=== PATIENT | female | born 1990 | race Caucasian/White ===

== ENCOUNTER 2017-04-11 17:42 | Emergency (ER) | payer OTHER ==
[2017-04-11] MEDS ORDERED: PREDNISONE 20 MG TAB PO ONE (18:11)
[2017-04-11] MEDS ORDERED: FAMOTIDINE 20MG TABLET PO ONE (18:11)
[2017-04-11] MEDS ORDERED: DIPHENHYDRAMINE HCL 25 MG CAPSULE PO ONE (18:11)
--- NOTE | 2017-04-11 18:16 | Emergency Department Record ---
History of Present Illness - General Chief complaint: Bite Insect/other Stated complaint: BEE STINGS, PATRICIA Time Seen by Provider: 04/11/17 18:11 Source: Patient Mode of Arrival: Ambulatory Limitations: No limitations - History of Present Illness Initial comments: 26 yo female presents to ED with a CC of scratchy throat and "difficulty taking a deep breath" following several bee stings that occurred 5 hours ago. Patient denies wheezing, throat swelling, or hives. Patient denies health problems at her baseline. MD complaint: Insect bite/sting Onset/Timin -: Hour(s) Location: Generalized Severity: Mild Consistency: Constant Improves with: None Worsens with: None Context: None Associated symptoms: Shortness of breath Treatments Prior to Arrival: None - Related Data Home Medications Medication Instructions Recorded Confirmed Last Taken Norgestimate-Ethinyl Estradiol 1 tab PO DAILY 04/11/17 04/11/17 04/11/17 [Ortho Tri-Cyclen 28 Tablet] Previous Rx's Medication Instructions Recorded Diphenhydramine HCl [Benadryl] 50 mg PO Q6H #20 cap 04/11/17 Famotidine [Pepcid] 40 mg PO DAILY #30 tablet 04/11/17 Prednisone [Prednisone 20Mg] 20 mg PO BID #8 tab 04/11/17 Allergies Allergy/AdvReac Type Severity Reaction Status Date / Time No Known Drug Allergies Allergy Verified 04/11/17 18:10 Review of Systems Constitutional: Denies: Chills, Fever, Malaise, Night sweats Eyes: Denies: Eye discharge, Eye pain ENT: Reports: Other (scratchy throat). Denies: Congestion, Ear pain, Epistaxis Respiratory: Denies: Cough, Dyspnea Cardiovascular: Denies: Chest pain, Dyspnea on exertion Endocrine: Denies: Fatigue, Heat or cold intolerance Gastrointestinal: Denies: Abdominal pain, Nausea, Vomiting Genitourinary: Denies: Incontinence, Retention Musculoskeletal: Denies: Arthralgia, Back pain, Gout, Joint swelling Skin: Denies: Bruising, Change in color Neurological: Denies: Abnormal gait, Confusion, Headache, Tingling Psychiatric: Denies: Anxiety Hematological/Lymphatic: Denies: Anemia, Blood Clots Past Medical History - SOCIAL HISTORY Smoking Status: Never smoker - RESPIRATORY Hx Respiratory Disorders: Yes Hx Asthma: Yes - CARDIOVASCULAR Hx Cardio Disorders: No - NEURO Hx Neuro Disorders: No - GI Hx GI Disorders: No - Hx Genitourinary Disorders: No - ENDOCRINE Hx Endocrine Disorders: No - MUSCULOSKELETAL Hx Musculoskeletal Disorders: No - PSYCH Hx Psych Problems: No - HEMATOLOGY/ONCOLOGY Hx Hematology/Oncology Disorders: No Family Medical History Hx Cancer: Grandparents Hx Diabetes: Grandparents Hx HTN: Grandparents Physical Exam - General General Appearance: Alert, Oriented x3, Cooperative, No acute distress Limitations: No limitations - Head Head exam: Atraumatic, Normocephalic, Normal inspection Head exam detail: negative: Abrasion, Contusion, Rowe's sign, General tenderness, Hematoma, Laceration - Eye Eye exam: Normal appearance. negative: Conjunctival injection, Periorbital swelling, Periorbital tenderness, Scleral icterus - ENT Ear exam: negative: Auricular hematoma, Auricular trauma Nasal Exam: negative: Active bleeding, Discharge, Dried blood, Foreign body Mouth exam: Other (normal uvula). negative: Drooling, Laceration, Muffled voice , Tongue elevation Throat exam: negative: Tonsillar erythema, Tonsillomegaly, R peritonsillar mass , L peritonsillar mass - Neck Neck exam: Normal inspection. negative: Tenderness - Respiratory Respiratory exam: Normal lung sounds bilaterally. negative: Respiratory distress, Rhonchi, Stridor, Wheezes - Cardiovascular Cardiovascular Exam: Regular rate, Normal rhythm, Normal heart sounds - GI/Abdominal GI/Abdominal exam: Soft. negative: Rebound, Rigid, Tenderness - Rectal Rectal exam: Deferred - exam: Deferred - Extremities Extremities exam: Normal inspection. negative: Calf tenderness, Pedal edema, Tenderness - Back Back exam: Denies: CVA tenderness (R), CVA tenderness (L) - Neurological Neurological exam: Alert, Normal gait, Oriented X3 - Psychiatric Psychiatric exam: Normal affect, Normal mood - Skin Skin exam: Normal color. negative: Abrasion Type of lesion: negative: abrasion Disposition Disposition: Discharge Clinical Impression: Bee sting reaction Qualifiers: Encounter type: initial encounter Injury intent: accidental or unintentional Qualified Code(s): T63.441A - Toxic effect of venom of bees, accidental ( unintentional), initial encounter Disposition: Home, Self-Care Condition: (2) Stable Instructions: Insect Bite or Sting (ED) Additional Instructions: Return to ED if your symptoms worsen or if you have any concerns. Benadry, Pepcid, and Prednisone as directed. Follow-up with your family doctor in 3-5 days as directed. Prescriptions: Diphenhydramine HCl [Benadryl] 50 mg PO Q6H #20 cap Famotidine [Pepcid] 40 mg PO DAILY #30 tablet Prednisone [Prednisone 20Mg] 20 mg PO BID #8 tab Forms: Patient Portal Access Time of Disposition: 19:47 Quality - Quality Measures Quality Measures: N/A - Blood Pressure Screening Blood Pressure Classification: Normal BP Reading Systolic Measurement: 110 Diastolic Measurement: 67 Screening for High Blood Pressure: < Normal BP, F/U Not Required > [G8783] Normal BP Follow-up Interventions: No follow-up required
[2017-04-11] MEDS ORDERED: MAGNESIUM HYDROXIDE/AL HYDROX 30 ML, LIDOCAINE VISC 2% 200 MG PO ONE ×2 (19:09)
== END 2017-04-11 19:51 | disposition home or self-care (01) ==
LOC: ER 17:42
DX: T63.441A Toxic effect of venom of bees, accidental (unintentional), initial encounter (principal); R06.00 Dyspnea, unspecified; R09.89 Other specified symptoms and signs involving the circulatory and respiratory systems
CPT/HCPCS: 99282; J7512

== ENCOUNTER 2018-12-29 08:52 | Emergency (ER) | payer OTHER ==
[2018-12-29] MEDS ORDERED: 0.9 % SODIUM CHLORIDE 1,000 ML BAG IV ONE (09:03)
[2018-12-29] MEDS ORDERED: ONDANSETRON HCL IV 4 MG/2 ML VIAL IVP ONE (09:03)
--- NOTE | 2018-12-29 09:17 | Emergency Department Record ---
History of Present Illness - General Chief complaint: Nausea, Vomiting, Diarrhea Stated complaint: BLACK/YELLOW STOOL Time Seen by Provider: 12/29/18 09:02 Source: Patient Mode of Arrival: Ambulatory Limitations: No limitations - History of Present Illness Initial comments: 28 yo presents from the [facility] office. She has been having diarrhea for 6 days. She reports she had milk shakes with other individuals last week. Three individuals developed diarrhea. The number of stools per day has varied. The other individuals have similar diarrhea still as well. 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 MD complaint: Diarrhea, Nausea, Vomiting Onset/Timin -: Days(s) Description of Vomiting: Other (dark diarrhea) Description of Diarrhea: Other Associated Abdominal Pain: Yes Location: Diffuse Radiation: None Quality: Cramping Consistency: Constant Improves with: None Worsens with: None Associated Symptoms: Denies other symptoms - Related Data Previous Rx's Medication Instructions Recorded Nitazoxanide [Alinia] 500 mg PO BID #6 tablet 12/29/18 Allergies Allergy/AdvReac Type Severity Reaction Status Date / Time No Known Drug Allergies Allergy Verified 04/11/17 18:10 Travel Screening - Travel/Exposure Within Last 30 Days Have you traveled within the last 30 days?: No Review of Systems Constitutional: Reports: Malaise. Denies: Chills, Fever Eyes: Reports: Eye discharge ENT: Reports: Congestion Respiratory: Reports: Cough Cardiovascular: Denies: Chest pain, Palpitations, Syncope Endocrine: Reports: Fatigue. Denies: Polydipsia, Polyuria Gastrointestinal: Reports: Diarrhea Genitourinary: Denies: Dysuria, Urgency Musculoskeletal: Denies: Arthralgia, Back pain, Neck pain Skin: Denies: Bruising, Change in color, Rash Neurological: Denies: Headache Psychiatric: Denies: Anxiety Hematological/Lymphatic: Denies: Easy bleeding, Easy bruising Past Medical History - SOCIAL HISTORY Smoking Status: Never smoker - RESPIRATORY Hx Respiratory Disorders: Yes Hx Asthma: Yes - CARDIOVASCULAR Hx Cardio Disorders: No - NEURO Hx Neuro Disorders: No - GI Hx GI Disorders: No - Hx Genitourinary Disorders: No - ENDOCRINE Hx Endocrine Disorders: No - MUSCULOSKELETAL Hx Musculoskeletal Disorders: No - PSYCH Hx Psych Problems: No - HEMATOLOGY/ONCOLOGY Hx Hematology/Oncology Disorders: No Family Medical History Any Significant Family History?: Yes Hx Cancer: Grandparents Hx Diabetes: Grandparents Hx HTN: Grandparents Physical Exam - General General Appearance: Alert, Oriented x3, Cooperative, No acute distress Limitations: No limitations - Head Head exam: Atraumatic, Normal inspection - Eye Eye exam: Normal appearance. negative: Conjunctival injection - ENT ENT exam: Normal exam, Mucous membranes moist Ear exam: Normal external inspection Nasal Exam: Normal inspection Mouth exam: Normal external inspection Teeth exam: Normal inspection Throat exam: Normal inspection - Neck Neck exam: Normal inspection, Full ROM. negative: Tenderness - Respiratory Respiratory exam: Normal lung sounds bilaterally. negative: Respiratory distress - Cardiovascular Cardiovascular Exam: Regular rate, Normal rhythm, Normal heart sounds - GI/Abdominal GI/Abdominal exam: Soft. negative: Distended, Guarding, Rebound, Rigid, Tenderness - Rectal Rectal exam: Deferred - exam: Deferred - Extremities Extremities exam: Normal inspection. negative: Pedal edema - Back Back exam: Denies: CVA tenderness (R), CVA tenderness (L), Rash noted - Neurological Neurological exam: Alert, Oriented X3 - Psychiatric Psychiatric exam: Normal affect, Normal mood. negative: Agitated, Anxious - Skin Skin exam: Dry, Intact, Normal color, Warm Course Vital Signs 12/29/18 09:02 Temperature 98.6 F Pulse Rate 81 Respiratory 20 Rate Blood Pressure 155/94 Pulse Ox 97 - Reevaluation(s) Reevaluation #1: 12/29/18 10:04 The stool is negative for blood The stool Rotavirus is negative 12/29/18 10:04 There are no acute significant abnormalities of the CBC There are no acute significant abnormalities of the CMP 12/29/18 10:40 The Stool is positive for Cryptosporidium 12/29/18 10:45 The case was reported to Nely Caballero of infection control given it is reportable Medical Decision Making - Lab Data Result diagrams: 12/29/18 09:25 12/29/18 09:25 Disposition Disposition: Discharge Clinical Impression: Cryptosporidial gastroenteritis Disposition: Home, Self-Care Condition: (1) Good Instructions: Gastroenteritis (ED) Additional Instructions: Call your doctor for the next available follow up appointment You case has been referred to the health department for follow up Return to the ER for a recheck if worse, any new concerns or questions Take the prescriptions provided as directed Review this ER visit and the tests performed with your family doctor Prescriptions: Nitazoxanide [Sofie] 500 mg PO BID #6 tablet Forms: Patient Portal Access Time of Disposition: 10:51 Quality - Quality Measures Quality Measures: N/A - Blood Pressure Screening Does Patient Have Any of the Following: No Blood Pressure Classification: Hypertensive Reading Systolic Measurement: 155 Diastolic Measurement: 94 Screening for High Blood Pressure: < Pre-Hypertensive BP, F/U Documented > [ G8950] Pre-Hypertensive Follow-up Interventions: Referral to alternative/primary care provider.
[2018-12-29 09:39] LABS: BASO % 0.9 % (0-6); EOS % 5.7 % (0-6); GRAN % 49.8 % (47-80); HEMATOCRIT 44.6 % (35.0-47.0); HEMOGLOBIN 14.5 gm/dl (11.6-16.0); LYMPH % 28.9 % (16-45); MEAN CELL VOLUME 86.3 fl (81-97); MEAN CORPUSCULAR HGB CONC 32.5 g/dl (32-36); MEAN PLATELET VOLUME 11.4 fl (7.4-10.4); MONO % 14.7 % (0-9); PLATELET COUNT 232 K/uL (130-400); RED BLOOD COUNT 5.17 M/uL (3.80-5.40); RED CELL DISTRIBUTION WIDTH 12.8 % (11.5-14.5); WHITE BLOOD COUNT W/O DIFF 5.6 K/uL (4.2-12.2)
[2018-12-29 09:51] LABS: BLOOD UREA NITROGEN 10 mg/dL (6-20); EST GLOMERULAR FILTRATION RATE > 60 mL/min
[2018-12-29 09:52] LABS: LIPASE 30 U/L (13-60); TOTAL PROTEIN 8.1 g/dL (6.6-8.7)
[2018-12-29 09:54] LABS: GLUCOSE,RANDOM 91 mg/dL (74-109)
[2018-12-29 09:57] LABS: ALB/GLOB RATIO 1.3 (1.1-1.8); ALBUMIN 4.5 g/dL (4.0-5.0); ALKALINE PHOSPHATASE 110 U/L (35-104); ALT/SGPT 30 U/L (<33); AST/SGOT 26 U/L (10.0-35.0)
[2018-12-29 10:02] LABS: ROTOVIRUS NOT DETECTED (NOT DETECT)
[2018-12-29 10:23] LABS: CRYPTOSPORIDIUM PARVUM ANTIGEN DETECTED (NOT DETECT)
[2018-12-29 10:24] LABS: GIARDIA LAMBLIA ANTIGEN NOT DETECTED (NOT DETECT)
[2018-12-29 10:27] LABS: URINE APPEARANCE CLEAR; URINE BILIRUBIN NEGATIVE (NEGATIVE); URINE BLOOD TRACE-I (NEGATIVE); URINE COLOR YELLOW; URINE GLUCOSE (UA) NEGATIVE (NEGATIVE); URINE KETONE NEGATIVE (NEGATIVE); URINE LEUKOCYTE ESTERASE TRACE (NEGATIVE); URINE NITRITE NEGATIVE (NEGATIVE); URINE PROTEIN NEGATIVE (NEGATIVE); URINE UROBILINOGEN 0.2 E.U./dL (0.20 - 1.00)
[2018-12-29 10:34] LABS: HCG,QUALITATIVE URINE NEGATIVE (NEGATIVE)
== END 2018-12-29 11:37 | disposition home or self-care (01) ==
LOC: ER 08:52
DX: A07.2 Cryptosporidiosis (principal); R11.2 Nausea with vomiting, unspecified
CPT/HCPCS: 80053; 81001; 81025; 82272; 83690; 85025; 87329; 87425; 89055; 96360; 96361; 96375; 99284; J7030